=== PATIENT | male | born 1985 | race Caucasian/White ===

== ENCOUNTER 2021-02-27 21:54 | Emergency (ER) | payer OTHER ==
[~2021-02-27] VITALS: Ht 172.7 cm; Wt 180.2 kg
--- NOTE | 2021-02-27 22:03 | PHYS DOC ---
Past History Past Medical History: Seizure Past Surgical History: Cholecystectomy Smoking: Cigarettes General Adult EDM: Chief Complaint: SEIZURE HPI: HPI: "...I had a seizure.. I been taking my Keppra.. I just got discharge from the other day .. for control... of my seizures.." Patient is a 36 year old male who presents with above hx and complaints of seizure. Patient had received Versed IM prior to arrival. Patient denies any history of head trauma. Patient reports recently discharged from for seizure evaluation. Was deferred since Pablo Suazo was on diversion. Patient currently an inmate in [employer] service. Patient denies any fever or chills. Has had no incontinence of stool or bladder. Patient did have 2 or 3 episodes here in which he had seizure-like activity however had full protective reflexes and no incontinence of bowel or bladder. Patient was however given additional Keppra and 2 mg of Ativan.. Overall presentation patient appears to be having pseudoseizures. Review of Systems: Review of Systems: Constitutional: Denies fever or chills Eyes: Denies change in visual acuity HENT: Denies nasal congestion or sore throat Respiratory: Denies cough or shortness of breath Cardiovascular: Denies chest pain or edema GI: Denies abdominal pain, nausea, vomiting, bloody stools or diarrhea : Denies dysuria Musculoskeletal: Complains of generalized myalgia and arthralgia. Integument: Denies rash Neurologic: Denies headache, focal weakness or sensory changes. Complains of tonic-clonic seizures Endocrine: Denies polyuria or polydipsia Lymphatic: Denies swollen glands Psychiatric: Denies depression or anxiety Family History: Family History: Noncontributory to presentation Current Medications: Current Meds: See nursing for home meds Allergies: Allergies: Allergic to penicillin amoxicillin, Toradol and tramadol Physical Exam: PE: Constitutional: no acute distress, non-toxic appearance. [] HENT: Normocephalic, atraumatic, bilateral external ears normal, oropharynx m oist, no oral exudates, nose normal. No injury to tongue. Eyes: PERRLA, EOMI, conjunctiva normal, no discharge. [] Eyes remain midline during the tonic-clonic seizure Neck: Normal range of motion, no tenderness, supple, no stridor. [] Cardiovascular:Heart rate regular rhythm, no murmur [] PMI slightly left Lungs & Thorax: Bilateral breath sounds to apex with few scattered wheezes auscultation [] Abdomen: Bowel sounds normal, soft, no tenderness, no masses, no pulsatile masses. Midline surgical scar and gallbladder surgery scars. Obese. Skin: Warm, dry, no erythema, no rash. [] Back: No tenderness, no CVA tenderness. [] Extremities: No tenderness, no cyanosis, no clubbing, ROM intact, no edema. [] Neurologic: Alert and oriented X 3, normal motor function, normal sensory function, no focal deficits noted. DTRs are +2 patella and brachial. Medical Massage Therapist equal. No drift. Psychologic: Affect normal, judgement normal, mood normal. [] EKG: EKG: EKG shows a sinus rhythm at 95 bpm. No acute morphology [] Radiology/Procedures: Radiology/Procedures: [[address] [address] IMAGING REPORT Signed PATIENT: ZEUS RANDOLPH ACCOUNT: [id number] : 1985 LOCATION: ER AGE: 36 SEX: M EXAM STATUS: DEP ER ORD. PHYSICIAN: CAESAR BRIONES MD REASON: sz PROCEDURE: CHEST AP ONLY INDICATION: Reason: sz / Spl. Instructions: / History: COMPARISON: None. FINDINGS: Single view of chest obtained. No focal airspace consolidation or edema. Cardiac silhouette is unremarkable. No gross osseous destructive lesion. IMPRESSION: * No focal airspace consolidation. Electronically signed by: Loly Naylor MD (02/28/2021 7:02 AM) [id number] DICTATED AND SIGNED BY: LOLY NAYLOR MD DATE: 02/28/21 07 CC: CAESAR BRIONES MD; PCP,NO ~MTH0 0 ][address] [address] IMAGING REPORT Signed PATIENT: ZEUS RANDOLPH ACCOUNT: [id number] : 1985 LOCATION: ER AGE: 36 SEX: M EXAM STATUS: REG ER ORD. PHYSICIAN: CAESAR BRIONES MD REASON: sz PROCEDURE: CT HEAD AND CERVICAL SPINE WO INDICATION: Reason: sz / Spl. Instructions: / History: COMPARISON: None. TECHNIQUE: Axial CT images obtained through the head and cervical spine without intravenous contrast. Coronal and sagittal reformats processed of cervical spine. One or more of the following individualized dose reduction techniques were utilized for this examination: 1. Automated exposure control; 2. Adjustment of the mA and/or kV according to patient size; 3. Use of iterative reconstruction technique. FINDINGS: Head: No intracranial hemorrhage. No midline shift. Basal cisterns patents. Ventricles and sulci are within normal limits. No acute osseous abnormality. Orbits and paranasal sinuses unremarkable. Cervical: No definite acute fracture. No dislocation. No evidence of perivertebral hematoma. Degenerative changes of the spine. There are regions of central canal and neural foraminal stenosis. IMPRESSION: * No acute intracranial hemorrhage. * No acute fracture or dislocation of the cervical spine. Electronically signed by: Loly Naylor MD (02/28/2021 12:07 AM) DESKTOP- [id number] DICTATED AND SIGNED BY: LOLY NAYLOR MD DATE: 02/28/21 0001 CC: CAESAR BRIONES MD; PCP,NO ~MTH0 0 Heart Score: C/O Chest Pain: N/A Risk Factors: Risk Factors: DM, Current or recent (<one month) smoker, HTN, HLP, family history of CAD, obesity. Risk Scores: Score 0 - 3: 2.5% MACE over next 6 weeks - Discharge Home Score 4 - 6: 20.3% MACE over next 6 weeks - Admit for Clinical Observation Score 7 - 10: 72.7% MACE over next 6 weeks - Early Invasive Strategies Course & Med Decision Making: Course & Med Decision Making Pertinent Labs and Imaging studies reviewed. (See chart for details) Noted patient had several episodes where he appeared to be having tonic-clonic seizures however he was easily arousable. Was never postictal. Never did lose control of bowel or urine. Is also to be noted his prolactin was normal at 7.7 which would be unusual for a typical tonic-clonic seizure. Suspect his overall presentation was malingering or pseudoseizure. However did decide to continue treatment with Keppra for possible underlying seizure disorder Return if any concerns. Keep follow-up with neurology. Impression: 1. Seizure 2. Suspect pseudoseizure 3. Mild hypernatremia 147 4. Normal prolactin level 7.7 [] Dragon Disclaimer: Dragon Disclaimer: This electronic medical record was generated, in whole or in part, using a voice recognition dictation system. Departure Departure: Scripts Levetiracetam (KEPPRA) 1,000 Mg Tablet 1 TAB PO BID for seizure for 30 Days, #60 TAB 0 Refills Prov: CAESAR BRIONES MD 02/28/21 Dragrex Disclaimer This chart was dictated in whole or in part using Voice Recognition software in a busy, high-work load, and often noisy Emergency Department environment. It may contain unintended and wholly unrecognized errors or omissions. Dragon Disclaimer This chart was dictated in whole or in part using Voice Recognition software in a busy, high-work load, and often noisy Emergency Department environment. It may contain unintended and wholly unrecognized errors or omissions. CAESAR BRIONES MD Feb 27, 2021 22:03
[2021-02-27] MEDS ORDERED: IV RINGERS SOLUTION,LACTATED 1,000 ML IV SCH (22:15)
[2021-02-27] MEDS ORDERED: IV NORMAL SALINE 100ML 100 ML ONE (22:28)
[2021-02-27] MEDS ORDERED: levETIRAcetam 500 MG/5 ML VIAL IV ONE (22:28)
[2021-02-27 22:41] LABS: BASO # 0.1 x10^3/uL (0.0-0.2); BASO % 1 % (0-3); EOS # 0.2 x10^3/uL (0.0-0.7); EOS % 2 % (0-3); HEMATOCRIT 42.5 % (39.0-53.0); HEMOGLOBIN 14.5 g/dL (13.0-17.5); LYMPH # 1.9 x10^3/uL (1.0-4.8); LYMPH % 18 % (24-48); MEAN CORPUSCULAR HEMOGLOBIN 33 pg (25-35); MEAN CORPUSCULAR HGB CONC 34 g/dL (31-37); MEAN CORPUSCULAR VOLUME 98 fL (79-100); MONO # 0.8 x10^3/uL (0.0-1.1); MONO % 8 % (0-9); NEUT # 7.6 x10^3uL (1.8-7.7); NEUT % 72 % (31-73); PLATELET COUNT 367 x10^3/uL (140-400); RED BLOOD COUNT 4.34 x10^6/uL (4.30-5.70); RED CELL DISTRIBUTION WIDTH 13.3 % (11.5-14.5); WHITE BLOOD COUNT 10.5 x10^3/uL (4.0-11.0)
[2021-02-27 22:53] LABS: HEMOGLOBIN ISTAT 14.3 gm/dL; POTASSIUM ISTAT 3.6 mmol/L (3.5-5.0)
--- NOTE | 2021-02-27 22:57 | EKG ---
[address] [address] Test Date: 2021-02-27 Test Time: 22:12:11 Pat Name: ZEUS RANDOLPH Department: Room: Gender: M Commercial Fishing Vessel Operator: : 1985 Requested By: CAESAR BRIONES Order Number: [id number] Reading MD: Measurements Intervals [place] Rate: 95 P: 0 AR: 168 QRS: 44 QRSD: 104 T: 36 QT: 348 QTc: 441 Interpretive Statements SINUS RHYTHM NORMAL ECG RI6.02 No previous ECG available for comparison
--- NOTE | 2021-02-28 00:09 | RAD ---
INDICATION: Reason: sz / Spl. Instructions: / History: COMPARISON: None. TECHNIQUE: Axial CT images obtained through the head and cervical spine without intravenous contrast. Coronal a nd sagittal reformats processed of cervical spine. One or more of the following individualized dose reduction techniques were utilized for this examinat ion: 1. Automated exposure control; 2. Adjustment of the mA and/or kV according to patient size; 3 . Use of iterative reconstruction technique. FINDINGS: Head: No intracranial hemorrhage. No midline shift. Basal cisterns patents. Ventricles and sulci are within normal limits. No acute osseous abnormality. Orbits and paranasal sinuses unremarkable. Cervical: No definite acute fracture. No dislocation. No evidence of perivertebral hematoma. Degenerative changes of the spine. There are regions of central canal and neural foraminal stenosis. IMPRESSION: * No acute intracranial hemorrhage. * No acute fracture or dislocation of the cervical spine. Electronically signed by: Rolando Victoria MD (02/28/2021 12:07 AM) [id number]
[2021-02-28] MEDS ORDERED: LEVE100020 PO (00:43)
[2021-02-28] MEDS ORDERED: KETOROLAC 60 MG/2 ML VIAL. IM ONE (00:45)
[2021-02-28] MEDS ORDERED: ONDANSETRON PF 4 MG/2 ML VIAL. ONE (00:52)
[2021-02-28 01:00] VITALS: BP 122/54
[2021-02-28] MEDS ORDERED: ONDANSETRON PF 4 MG/2 ML VIAL. IVP ONE (01:00)
[2021-02-28 01:26] LABS: BILIRUBIN,URINE NEG (NEG); CLARITY,URINE CLEAR; COLOR,URINE YELLOW; GLUCOSE,URINE NEG (NEG)
[2021-02-28 01:27] LABS: BACTERIA,URINE 0 /HPF (0-FEW); NITRITE,URINE NEG (NEG); RBC,URINE 0 /HPF (0-2); SQUAMOUS EPITHELIAL CELL,UR OCC /LPF; WBC,URINE 0 /HPF (0-4)
[2021-02-28 01:29] LABS: BARBITURATES NEG (NEG); BENZODIAZEPINES POS (NEG); CANNABINOIDS NEG (NEG); COCAINE NEG (NEG); METHADONE NEG (NEG); OPIATES NEG (NEG); PHENCYCLIDINE NEG (NEG)
[2021-02-28 01:38] LABS: AMPHETAMINE/METHAMPHETAMINE NEG (NEG)
--- NOTE | 2021-02-28 07:05 | RAD ---
INDICATION: Reason: sz / Spl. Instructions: / History: COMPARISON: None. FINDINGS: Single view of chest obtained. No focal airspace consolidation or edema. Cardiac silhouette is unremarkable. No gross osseous destructive lesion. IMPRESSION: * No focal airspace consolidation. Electronically signed by: Rolando Victoria MD (02/28/2021 7:02 AM) [id number]
== END 2021-02-28 01:09 | disposition home or self-care (01) ==
LOC: ER 21:54
DX: R56.9 Unspecified convulsions (principal); E87.0 Hyperosmolality and hypernatremia; F17.210 Nicotine dependence, cigarettes, uncomplicated; Z90.49 Acquired absence of other specified parts of digestive tract; Z88.0 Allergy status to penicillin; Z88.1 Allergy status to other antibiotic agents; Z88.8 Allergy status to other drugs, medicaments and biological substances
CPT/HCPCS: 36415; 70450; 71045; 72125; 80047; 80307; 81001; 84146; 85025; 93005; 96365; 96372; 96375; 99285; J1885; J1953; J2060; J2405; J7120